=== PATIENT | female | born 1955 | race Caucasian/White ===

== ENCOUNTER 2021-01-01 06:59 | Observation (INO) | payer OTHER, SELFPAY ==
[~2021-01-01] VITALS: Ht 149.9 cm; Wt 59.9 kg
[2021-01-01 07:00] VITALS: BP_SYST 194
[2021-01-01 07:56] LABS: BASOPHILS % (AUTO) 0.6 % (0.0-2.0); EOSINOPHILS # (AUTO) 0.1 K/uL (0.0-0.4); EOSINOPHILS % (AUTO) 1.2 % (0.0-4.0); HEMATOCRIT 39.5 % (36-48); HEMOGLOBIN 13.6 g/dL (12.0-16.0); LYMPHOCYTES % (AUTO) 32.2 % (20.5-51.5); MEAN CORPUSCULAR HEMOGLOBIN 30 pg (27-31); MEAN CORPUSCULAR HGB CONC 35 % (32-36); MEAN CORPUSCULAR VOLUME 88 fL (79.0-98.0); MONOCYTES # (AUTO) 0.4 K/uL (0.0-1.0); NEUTROPHILS # (AUTO) 3.7 K/uL (1.8-7.7); PLATELET COUNT (AUTO) 240 K/uL (130-430); RED BLOOD CELL COUNT(AUTO) 4.51 MIL/uL (4.2-6.2); RED CELL DISTRIBUTION WIDTH 13.5 % (9.0-15.0); WHITE BLOOD COUNT (AUTO) 6.2 K/uL (4.8-10.8)
[2021-01-01 08:19] LABS: CALCIUM 9.7 mg/dL (8.4-11.0); CREATININE 0.45 mg/dL (0.55-1.30); POTASSIUM 3.7 mmol/L (3.5-5.1)
[2021-01-01 08:22] LABS: INR 0.9 (0.8-1.2); PROTHROMBIN TIME 9.6 SECS (9.5-12.5)
[2021-01-01 08:25] LABS: ALBUMIN 4.1 g/dL (3.4-4.8); TOTAL BILIRUBIN 0.2 mg/dL (0.0-1.0)
[2021-01-01] MEDS: ASPIRIN 325 MG TABLET PO ONE (09:26)
[2021-01-01] MEDS ORDERED: VITD400 PO (09:41)
[2021-01-01] MEDS ORDERED: ATOR10TA68 PO (09:41)
[2021-01-01] MEDS ORDERED: AMLO5TAB4 PO (09:41)
[2021-01-01 11:15] VITALS: BP_SYST 132
[2021-01-01 16:00] VITALS: BP_SYST 130
[2021-01-01 19:30] VITALS: BP_SYST 123
[2021-01-02] VITALS: BP_SYST 91
[2021-01-02 08:00] VITALS: BP_SYST 144
[2021-01-02] MEDS: ATORVASTATIN 10 MG TABLET PO ONE (10:09)
[2021-01-02] MEDS: amLODIPine BESYLATE 5 MG TABLET PO ONE (10:18)
[2021-01-02 12:00] VITALS: BP_SYST 128
[2021-01-02 17:28] VITALS: BP_SYST 132
[2021-01-02 18:45] VITALS: BP_SYST 132
[2021-01-03] MEDS ORDERED: ATORVASTATIN 10 MG TABLET PO SCH (09:00)
[2021-01-03] MEDS ORDERED: amLODIPine BESYLATE 5 MG TABLET PO SCH (09:00)
== END 2021-01-02 18:45 | disposition home or self-care (01) ==
LOC: SED 06:59 → INTOOBSV 09:22 → STU 09:22
PROVIDERS: ADMIT Internal Medicine Hospice and Palliative Medicine; ATTEND Internal Medicine Hospice and Palliative Medicine
DX: G45.9 Transient cerebral ischemic attack, unspecified (principal); Z20.822 Contact with and (suspected) exposure to COVID-19; I10 Essential (primary) hypertension; E78.5 Hyperlipidemia, unspecified; E78.00 Pure hypercholesterolemia, unspecified; F41.9 Anxiety disorder, unspecified; E55.9 Vitamin D deficiency, unspecified; Z79.899 Other long term (current) drug therapy
CPT/HCPCS: 36415; 70450; 70551; 71045; 76376; 80053; 83605; 84484; 85025; 85610; 85730; 87426; 93005; 93306; 93880; 99285; G0378

== ENCOUNTER 2021-03-24 17:06 | Emergency (ER) | payer OTHER, SELFPAY ==
[~2021-03-24] VITALS: Ht 149.9 cm; Wt 60.3 kg
[~2021-03-24 17:06] MED LIST: AMLO5TAB4 PO; ATOR10TA68 PO; VITD400 PO
[2021-03-24 19:10] VITALS: BP_SYST 124
--- NOTE | 2021-03-24 19:10 | NUR ---
Patient triaged and placed in waiting room. VSS and patient appears in no acute distress at this time. Accompanied by fam member, awaiting available bed, and MD notified of need for MSE.
--- NOTE | 2021-03-24 20:30 | NUR ---
ER examining patient in the lobby.
--- NOTE | 2021-03-24 21:09 | NUR ---
# 20 gauge angiocath placed to lac. Use of asceptic technique. Opsite placed over site. Blood return noted. Flushed with 10 cc of normal saline. No evidence of infiltration noted. Patient tolerated well.
[2021-03-24 22:02] LABS: BASOPHILS # (AUTO) 0.1 K/uL (0.0-0.2); BASOPHILS % (AUTO) 1.8 % (0.0-2.0); EOSINOPHILS # (AUTO) 0.1 K/uL (0.0-0.4); EOSINOPHILS % (AUTO) 1.1 % (0.0-4.0); HEMATOCRIT 38.2 % (36-48); HEMOGLOBIN 12.9 g/dL (12.0-16.0); LYMPHOCYTES # (AUTO) 2.3 K/uL (1.0-5.5); LYMPHOCYTES % (AUTO) 38.1 % (20.5-51.5); MEAN CORPUSCULAR HEMOGLOBIN 30 pg (27-31); MEAN CORPUSCULAR HGB CONC 34 % (32-36); MEAN CORPUSCULAR VOLUME 88 fL (79.0-98.0); MONOCYTES # (AUTO) 0.4 K/uL (0.0-1.0); MONOCYTES % (AUTO) 7.2 % (1.7-9.3); NEUTROPHILS # (AUTO) 3.2 K/uL (1.8-7.7); NEUTROPHILS % (AUTO) 51.8 % (40.0-70.0); PLATELET COUNT (AUTO) 230 K/uL (130-430); RED BLOOD CELL COUNT(AUTO) 4.36 MIL/uL (4.2-6.2); RED CELL DISTRIBUTION WIDTH 13.4 % (9.0-15.0); WHITE BLOOD COUNT (AUTO) 6.1 K/uL (4.8-10.8)
[2021-03-24 22:04] LABS: CALCIUM 9.5 mg/dL (8.4-11.0); CREATININE 0.48 mg/dL (0.55-1.30)
[2021-03-24 22:10] LABS: ALBUMIN 3.7 g/dL (3.4-4.8); TOTAL BILIRUBIN 0.2 mg/dL (0.0-1.0)
[2021-03-25 00:52] LABS: BILIRUBIN,URINE NEGATIVE (NEGATIVE); BLOOD, URINE NEGATIVE (NEGATIVE); CLARITY/URINE CLEAR (CLEAR); COLOR,URINE YELLOW (YELLOW); GLUCOSE,URINE NEGATIVE (NEGATIVE); KETONES,URINE NEGATIVE (NEGATIVE); LEUKOCYTE ESTERASE ,URINE NEGATIVE (NEGATIVE); NITRITE, URINE NEGATIVE (NEGATIVE); PROTEIN URINE NEGATIVE (NEGATIVE); UROBILINOGEN,URINE 0.2 (0.2-1.0)
--- NOTE | 2021-03-25 01:51 | NUR ---
PT REFUSED US.
--- NOTE | 2021-03-25 02:50 | NUR ---
Patient does not wish to proceed with medical care recommended by Jose. Patient given information related to possible complications, up to and including , which could occur as a result of leaving hospital at this time. Patient verbalizes understanding of risks involved leaving against medical advice. Patient has signed AMA form.IV access removed.
[2021-03-25 02:55] VITALS: BP_SYST 131
== END 2021-03-25 02:55 | disposition home or self-care (01) ==
LOC: SED 17:06
DX: N83.201 Unspecified ovarian cyst, right side (principal); I10 Essential (primary) hypertension; E78.00 Pure hypercholesterolemia, unspecified; Z79.899 Other long term (current) drug therapy
CPT/HCPCS: 36415; 74177; 76376; 80053; 81003; 85025; 99285; Q9967